=== PATIENT | male | born 1980 | race Hispanic/Latino ===

== ENCOUNTER 2022-04-07 09:58 | Inpatient (IN) | payer MEDICAID ==
[~2022-04-07] VITALS: Ht 170.2 cm; Wt 126.7 kg
[~2022-04-07 09:58] MED LIST: AMOX-426 PO; APIX5TAB PO; BUDE180H IH; FURO20TA6 PO; HYDR-4068 PO; IPRAHFA IH; METO-408 PO; PANT40TA55 PO; POTA10CA44 PO; PRED20B PO
[2022-04-07 10:28] LABS: CREATININE 0.4 mg/dL (0.5-1.5); POTASSIUM 4.1 mmol/L (3.5-5.1)
[2022-04-07 10:28] LABS: ABG HCO3 35.2 mmol/L (21.0-28.0); ABG OXYGEN SATURATION 92.6 % (95.0-99.0); ABG PCO2 89 mmHg (35-48)
[2022-04-07 10:31] LABS: BASOPHILS % (AUTO) 0.5 % (0.0-5.0); EOSINOPHILS % (AUTO) 0.7 % (0.0-8.0); HEMATOCRIT 57.3 % (42-54); LYMPHOCYTES % (AUTO) 23.3 % (21.0-51.0); MEAN CORPUSCULAR HEMOGLOBIN 20.3 pg (27.0-33.0); MEAN CORPUSCULAR HGB CONC 23.9 g/dL (32.0-36.0); NEUTROPHILS % (AUTO) 69.5 % (40.0-77.0); NUCLEATED RED BLOOD CELLS 2.2 % (0.0-0.19); PLATELET COUNT (AUTO) 132 K/uL (130-400); RED BLOOD CELL COUNT(AUTO) 6.74 MIL/uL (4.50-6.20); RED CELL DISTRIBUTION WIDTH 26.4 % (11.0-15.5); WHITE BLOOD COUNT (AUTO) 10.8 K/uL (4.8-10.8)
[2022-04-07 10:33] LABS: ALBUMIN 2.4 g/dL (3.5-5.0); BILIRUBIN,TOTAL 1.6 mg/dL (0.2-1.0); TOTAL PROTEIN, SERUM 6.6 g/dL (6.0-8.3)
[2022-04-07] MEDS ORDERED: FUROSEMIDE 20MG VIAL IV ONE (12:00)
[2022-04-07 12:29] LABS: APPEARANCE,URINE Cloudy (CLEAR); BILIRUBIN,URINE Large (NEGATIVE); COLOR,URINE Dark Yellow (YELLOW); GLUCOSE, URINE (UA) Negative (NEGATIVE); KETONES,URINE Trace mg/dL (NEGATIVE); LEUKOCYTE ESTERASE ,URINE Small (NEGATIVE); NITRATE,URINE Negative (NEGATIVE); OCCULT BLOOD,URINE Large (NEGATIVE); PROTEIN,URINE POS 2+ mg/dL (NEGATIVE)
[2022-04-07 12:33] LABS: AMPHET/METH SCREEN,URINE NEGATIVE (NEGATIVE); BARBITURATE SCREEN, URINE NEGATIVE (NEGATIVE); BENZODIAZEPINES SCREEN,URINE NEGATIVE (NEGATIVE); CANNABINOID SCREEN,URINE NEGATIVE (NEGATIVE); COCAINE SCREEN,URINE NEGATIVE (NEGATIVE); OPIATE SCREEN,URINE POSITIVE (NEGATIVE); PHENCYCLIDINE SCREEN,URINE NEGATIVE (NEGATIVE)
[2022-04-07 12:53] LABS: BACTERIA,URINE Moderate /HPF (None Seen); RBC,URINE >100 /HPF (0-1); WBC,URINE 26-50 /HPF (0-1)
[2022-04-07] MEDS ORDERED: ENOXAPARIN SODIUM 80 MG/0.8 ML SQ ONE (13:17)
[2022-04-07] MEDS: ENOXAPARIN SODIUM 0.5 MG/KG EACH SQ SCH (13:22)
[2022-04-07] MEDS: ZOSYN 3.375GM +NS 50ML IV SCH ×2 (14:36→21:49)
[2022-04-07] MEDS: DOXYCYCLINE 100MG+NS 250ML IV SCH (14:55)
[2022-04-07 17:19] LABS: ABG BASE EXCESS 16.3 mmol/L (-2.0-3.0); ABG HCO3 51.5 mmol/L (21.0-28.0); ABG PCO2 137 mmHg (35-48)
[2022-04-07 19:46] LABS: ABG BASE EXCESS 8.6 mmol/L (-2.0-3.0); ABG HCO3 39.1 mmol/L (21.0-28.0); ABG OXYGEN SATURATION 94.5 % (95.0-99.0); ABG PCO2 85 mmHg (35-48)
[2022-04-07] MEDS: FUROSEMIDE 40MG VIAL IV SCH (20:45)
[2022-04-07] MEDS ORDERED: PANTOPRAZOLE 40 MG/VIAL ONE (21:29)
[2022-04-07] MEDS ORDERED: PANTOPRAZOLE 40 MG/VIAL IVP ONE (21:30)
[2022-04-08] MEDS: DOXYCYCLINE 100MG+NS 250ML IV SCH ×2 (02:05→14:34)
[2022-04-08] MEDS ORDERED: ONDANSETRON 4MG INJ ONE (02:42)
[2022-04-08] MEDS ORDERED: ONDANSETRON 4MG INJ IVP PRN (03:00)
[2022-04-08] MEDS: ZOSYN 3.375GM +NS 50ML IV SCH ×3 (06:01→22:40)
[2022-04-08 07:10] LABS: ABG BASE EXCESS 13.6 mmol/L (-2.0-3.0); ABG OXYGEN SATURATION 77.8 % (95.0-99.0); ABG PCO2 77 mmHg (35-48)
[2022-04-08] MEDS: IPRATROPIUM/ALBUTEROL SULFATE 3 ML SOLUTION IH SCH ×3 (07:29→18:00)
[2022-04-08] MEDS: FUROSEMIDE 40MG VIAL IV SCH ×2 (08:00→20:31)
[2022-04-08] MEDS: PANTOPRAZOLE 40 MG/VIAL IVP SCH (08:00)
[2022-04-08 09:20] LABS: BASOPHILS % (AUTO) 0.4 % (0.0-5.0); EOSINOPHILS % (AUTO) 1.1 % (0.0-8.0); HEMATOCRIT 58.1 % (42-54); LYMPHOCYTES % (AUTO) 21.2 % (21.0-51.0); MEAN CORPUSCULAR HEMOGLOBIN 19.7 pg (27.0-33.0); MEAN CORPUSCULAR HGB CONC 23.8 g/dL (32.0-36.0); MONOCYTES % (AUTO) 7.7 % (3.0-13.0); NEUTROPHILS % (AUTO) 68.8 % (40.0-77.0); NUCLEATED RED BLOOD CELLS 1.4 % (0.0-0.19); PLATELET COUNT (AUTO) 137 K/uL (130-400); RED CELL DISTRIBUTION WIDTH 26.3 % (11.0-15.5); WHITE BLOOD COUNT (AUTO) 7.9 K/uL (4.8-10.8)
[2022-04-08 09:41] LABS: ALBUMIN 2.5 g/dL (3.5-5.0); BILIRUBIN,TOTAL 2.2 mg/dL (0.2-1.0); CREATININE 0.4 mg/dL (0.5-1.5); TOTAL PROTEIN, SERUM 6.6 g/dL (6.0-8.3)
[2022-04-08 09:47] LABS: POTASSIUM 2.8 mmol/L (3.5-5.1)
[2022-04-08] MEDS ORDERED: MAGNESIUM 2GM PREMIX 50ML 50 ML IV ONE (10:34)
[2022-04-08] MEDS ORDERED: POTASSIUM CHLORIDE 20MEQ/100ML 100 ML IV ONE (10:35)
[2022-04-08] MEDS ORDERED: LIDOCAINE HCL-MPF 1% 2ML VIAL ONE (10:35)
[2022-04-08] MEDS: MAGNESIUM 2GM PREMIX 50ML 50 ML IV PRN (10:43)
[2022-04-08] MEDS ORDERED: LIDOCAINE HCL-MPF 1% 2ML VIAL IV PRN (11:00)
[2022-04-08] MEDS ORDERED: POTASSIUM CHLORIDE 20MEQ/100ML 100 ML IV PRN (11:00)
[2022-04-08] MEDS: ENOXAPARIN SODIUM 0.5 MG/KG EACH SQ SCH (13:00)
[2022-04-08] MEDS ORDERED: ENOXAPARIN SODIUM 60 MG/0.6 ML SQ ONE (13:45)
[2022-04-08 15:11] LABS: ABG BASE EXCESS 7.5 mmol/L (-2.0-3.0); ABG HCO3 34.1 mmol/L (21.0-28.0); ABG OXYGEN SATURATION 96.3 % (95.0-99.0); ABG PCO2 55 mmHg (35-48)
[2022-04-08] MEDS: NEOMY SULF/BACITRA/POLYMYXIN B 3.5 GM OINT OU SCH ×2 (15:12→20:31)
[2022-04-08] MEDS ORDERED: PHARMACY COMMUNICATION MISC SCH (17:00)
[2022-04-08] MEDS ORDERED: COMPOUND IV REFRIGERATED 1 EACH IVSOLN MISC PRN (17:30)
[2022-04-08] MEDS ORDERED: VANCOMYCIN PROTOCOL PER PHARMACY IV SCH (17:30)
[2022-04-08] MEDS: VANCOMYCIN 1G 1.75 GM in 0.9% NACL 250ML 250 ML IV SCH (19:19)
[2022-04-08] MEDS: POTASSIUM CHLORIDE 10% ELIXIR 20 MEQ/15 ML UDCUP PO PRN (20:32)
[2022-04-08] MEDS ORDERED: 0.9% NACL 500ML IV.SOLN 500 ML IV SCH (22:30)
[2022-04-09] MEDS: IPRATROPIUM/ALBUTEROL SULFATE 3 ML SOLUTION IH SCH ×4 (00:08→16:46)
[2022-04-09] MEDS: DOXYCYCLINE 100MG+NS 250ML IV SCH ×2 (02:33→14:06)
[2022-04-09 05:08] LABS: ABG BASE EXCESS 16.3 mmol/L (-2.0-3.0); ABG HCO3 47.9 mmol/L (21.0-28.0); ABG OXYGEN SATURATION 94.5 % (95.0-99.0); ABG PCO2 98 mmHg (35-48)
[2022-04-09 05:48] LABS: HEMATOCRIT 54.3 % (42-54); MEAN CORPUSCULAR HEMOGLOBIN 20.1 pg (27.0-33.0); MEAN CORPUSCULAR HGB CONC 24.1 g/dL (32.0-36.0); MEAN CORPUSCULAR VOLUME 83.4 fL (79-99); NUCLEATED RED BLOOD CELLS 0.4 % (0.0-0.19); PLATELET COUNT (AUTO) 132 K/uL (130-400); RED BLOOD CELL COUNT(AUTO) 6.51 MIL/uL (4.50-6.20); RED CELL DISTRIBUTION WIDTH 26.1 % (11.0-15.5); WHITE BLOOD COUNT (AUTO) 9.5 K/uL (4.8-10.8)
[2022-04-09 06:04] LABS: ALBUMIN 2.1 g/dL (3.5-5.0); BILIRUBIN,TOTAL 1.5 mg/dL (0.2-1.0); CREATININE 0.4 mg/dL (0.5-1.5); MAGNESIUM 1.2 mg/dL (1.80-2.40); POTASSIUM 3.4 mmol/L (3.5-5.1); TOTAL PROTEIN, SERUM 5.9 g/dL (6.0-8.3)
[2022-04-09] MEDS: MAGNESIUM 2GM PREMIX 50ML 50 ML IV PRN (06:56)
[2022-04-09] MEDS: ZOSYN 3.375GM +NS 50ML IV SCH ×3 (06:56→23:01)
[2022-04-09] MEDS: PANTOPRAZOLE 40 MG/VIAL IVP SCH (08:51)
[2022-04-09] MEDS: FUROSEMIDE 40MG VIAL IV SCH ×2 (08:52→20:19)
[2022-04-09] MEDS: NEOMY SULF/BACITRA/POLYMYXIN B 3.5 GM OINT OU SCH ×3 (08:52→20:49)
[2022-04-09] MEDS: ASPIRIN 81MG CHEW TAB PO SCH (08:52)
[2022-04-09] MEDS: POTASSIUM CHLORIDE 10% ELIXIR 20 MEQ/15 ML UDCUP PO PRN ×2 (08:58→18:24)
[2022-04-09] MEDS ORDERED: NOREPINEPHRIN 4MG/NS 250ML 250 ML IV SCH (09:00)
[2022-04-09] MEDS: VANCOMYCIN 1G 1.75 GM in 0.9% NACL 250ML 250 ML IV SCH ×2 (09:06→20:21)
[2022-04-09] MEDS: MIDODRINE HCL 5 MG TABLET PO SCH ×3 (09:13→20:19)
[2022-04-09 10:48] VITALS: BP 101/51
[2022-04-09 13:35] VITALS: BP 104/53
[2022-04-09] MEDS ORDERED: 0.9% NACL 250ML 250 ML ONE (14:03)
[2022-04-09 15:11] LABS: ABG BASE EXCESS 11.1 mmol/L (-2.0-3.0); ABG HCO3 41.5 mmol/L (21.0-28.0); ABG OXYGEN SATURATION 89.2 % (95.0-99.0); ABG PCO2 85 mmHg (35-48)
[2022-04-09 15:20] VITALS: BP 113/58
[2022-04-09] MEDS: ENOXAPARIN SODIUM 60 MG/0.6 ML SQ SCH ×2 (15:50→20:20)
[2022-04-09 21:12] VITALS: BP 109/54
[2022-04-09 23:48] VITALS: BP 109/62
[2022-04-10] VITALS (7 sets, daily range): BP systolic 102–157; BP diastolic 51–76
[2022-04-10] MEDS: IPRATROPIUM/ALBUTEROL SULFATE 3 ML SOLUTION IH SCH ×5 (00:32→23:37)
[2022-04-10] MEDS: DOXYCYCLINE 100MG+NS 250ML IV SCH ×2 (02:27→14:09)
[2022-04-10 04:14] LABS: HEMATOCRIT 50.7 % (42-54); MEAN CORPUSCULAR HEMOGLOBIN 20.5 pg (27.0-33.0); MEAN CORPUSCULAR HGB CONC 24.9 g/dL (32.0-36.0); MEAN CORPUSCULAR VOLUME 82.3 fL (79-99); NUCLEATED RED BLOOD CELLS 0.2 % (0.0-0.19); PLATELET COUNT (AUTO) 101 K/uL (130-400); RED BLOOD CELL COUNT(AUTO) 6.16 MIL/uL (4.50-6.20); RED CELL DISTRIBUTION WIDTH 26.5 % (11.0-15.5); WHITE BLOOD COUNT (AUTO) 8.4 K/uL (4.8-10.8)
[2022-04-10 04:37] LABS: ALBUMIN 2.1 g/dL (3.5-5.0); BILIRUBIN,TOTAL 1.3 mg/dL (0.2-1.0); CREATININE 0.8 mg/dL (0.5-1.5); MAGNESIUM 1.4 mg/dL (1.80-2.40); POTASSIUM 3.4 mmol/L (3.5-5.1); TOTAL PROTEIN, SERUM 5.6 g/dL (6.0-8.3)
[2022-04-10] MEDS: ZOSYN 3.375GM +NS 50ML IV SCH ×3 (05:00→23:59)
[2022-04-10] MEDS: MAGNESIUM 2GM PREMIX 50ML 50 ML IV PRN (05:01)
[2022-04-10] MEDS: VANCOMYCIN 1G 1.75 GM in 0.9% NACL 250ML 250 ML IV SCH ×2 (08:30→20:23)
[2022-04-10] MEDS: PANTOPRAZOLE 40 MG/VIAL IVP SCH (09:44)
[2022-04-10] MEDS: ENOXAPARIN SODIUM 60 MG/0.6 ML SQ SCH ×2 (09:44→20:53)
[2022-04-10] MEDS: FUROSEMIDE 40MG VIAL IV SCH (09:44)
[2022-04-10] MEDS: ASPIRIN 81MG CHEW TAB PO SCH (09:45)
[2022-04-10] MEDS: MIDODRINE HCL 5 MG TABLET PO SCH ×3 (09:45→20:48)
[2022-04-10] MEDS: NEOMY SULF/BACITRA/POLYMYXIN B 3.5 GM OINT OU SCH ×3 (09:46→21:00)
[2022-04-10 09:57] LABS: ABG BASE EXCESS 9.6 mmol/L (-2.0-3.0); ABG HCO3 40.6 mmol/L (21.0-28.0); ABG PCO2 89 mmHg (35-48)
[2022-04-10] MEDS ORDERED: IOHEXOL 350 MG/ML 100ML INFUS..BTL IV ONE (10:43)
[2022-04-10] MEDS ORDERED: ACETAZOLAMIDE SODIUM 500 MG VIAL IV SCH ×2 (15:30→16:00)
[2022-04-10] MEDS: ACETAZOLAMIDE SODIUM 500 MG VIAL IV SCH (16:26)
[2022-04-10] MEDS: POTASSIUM CHLORIDE 10% ELIXIR 20 MEQ/15 ML UDCUP PO PRN ×2 (18:37→20:48)
[2022-04-10] MEDS ORDERED: FUROSEMIDE 20MG VIAL IV SCH (21:00)
[2022-04-11] VITALS (11 sets, daily range): BP systolic 110–174; BP diastolic 57–75
[2022-04-11] MEDS: DOXYCYCLINE 100MG+NS 250ML IV SCH ×2 (02:35→15:10)
[2022-04-11 04:40] LABS: ABG BASE EXCESS 11.7 mmol/L (-2.0-3.0); ABG HCO3 43.2 mmol/L (21.0-28.0); ABG OXYGEN SATURATION 95.6 % (95.0-99.0); ABG PCO2 94 mmHg (35-48)
[2022-04-11 05:20] LABS: HEMATOCRIT 50.9 % (42-54); MEAN CORPUSCULAR HEMOGLOBIN 20.7 pg (27.0-33.0); MEAN CORPUSCULAR HGB CONC 24.6 g/dL (32.0-36.0); MEAN CORPUSCULAR VOLUME 84.4 fL (79-99); PLATELET COUNT (AUTO) 98 K/uL (130-400); RED BLOOD CELL COUNT(AUTO) 6.03 MIL/uL (4.50-6.20); RED CELL DISTRIBUTION WIDTH 26.5 % (11.0-15.5); WHITE BLOOD COUNT (AUTO) 5.8 K/uL (4.8-10.8)
[2022-04-11 06:11] LABS: ALBUMIN 2.1 g/dL (3.5-5.0); BILIRUBIN,TOTAL 1.1 mg/dL (0.2-1.0); CREATININE 1.1 mg/dL (0.5-1.5); MAGNESIUM 1.9 mg/dL (1.80-2.40); POTASSIUM 3.5 mmol/L (3.5-5.1)
[2022-04-11] MEDS: ZOSYN 3.375GM +NS 50ML IV SCH ×3 (06:13→23:00)
[2022-04-11] MEDS: IPRATROPIUM/ALBUTEROL SULFATE 3 ML SOLUTION IH SCH ×4 (06:51→23:42)
[2022-04-11] MEDS: VANCOMYCIN 1G 1.75 GM in 0.9% NACL 250ML 250 ML IV SCH (09:00)
[2022-04-11] MEDS: POTASSIUM CHLORIDE 10% ELIXIR 20 MEQ/15 ML UDCUP PO PRN ×2 (10:12→15:10)
[2022-04-11] MEDS: ACETAZOLAMIDE SODIUM 500 MG VIAL IV SCH (10:12)
[2022-04-11] MEDS: PANTOPRAZOLE 40 MG/VIAL IVP SCH (10:13)
[2022-04-11] MEDS: MIDODRINE HCL 5 MG TABLET PO SCH ×3 (10:13→22:00)
[2022-04-11] MEDS: ASPIRIN 81MG CHEW TAB PO SCH (10:13)
[2022-04-11] MEDS: ENOXAPARIN SODIUM 60 MG/0.6 ML SQ SCH ×2 (10:13→22:00)
[2022-04-11] MEDS: NEOMY SULF/BACITRA/POLYMYXIN B 3.5 GM OINT OU SCH ×3 (10:13→21:00)
[2022-04-11 21:17] LABS: ABG BASE EXCESS 12.3 mmol/L (-2.0-3.0); ABG HCO3 40.4 mmol/L (21.0-28.0); ABG OXYGEN SATURATION 96.8 % (95.0-99.0); ABG PCO2 69 mmHg (35-48)
[2022-04-12] VITALS (33 sets, daily range): BP systolic 121–156; BP diastolic 49–115
[2022-04-12] MEDS: DOXYCYCLINE 100MG+NS 250ML IV SCH ×2 (03:00→14:04)
[2022-04-12] MEDS ORDERED: 0.9% NACL 250ML 250 ML ONE ×2 (03:09→13:15)
[2022-04-12 04:27] LABS: BASOPHILS % (AUTO) 0.5 % (0.0-5.0); EOSINOPHILS % (AUTO) 3.5 % (0.0-8.0); HEMATOCRIT 53.5 % (42-54); LYMPHOCYTES % (AUTO) 25.7 % (21.0-51.0); MEAN CORPUSCULAR VOLUME 84.4 fL (79-99); MONOCYTES % (AUTO) 9.5 % (3.0-13.0); NEUTROPHILS % (AUTO) 60.4 % (40.0-77.0); PLATELET COUNT (AUTO) 110 K/uL (130-400); RED BLOOD CELL COUNT(AUTO) 6.34 MIL/uL (4.50-6.20); RED CELL DISTRIBUTION WIDTH 27.1 % (11.0-15.5); WHITE BLOOD COUNT (AUTO) 5.5 K/uL (4.8-10.8)
[2022-04-12 04:52] LABS: ALBUMIN 2.2 g/dL (3.5-5.0); CREATININE 1.2 mg/dL (0.5-1.5); MAGNESIUM 1.8 mg/dL (1.80-2.40); PHOSPHORUS 3.2 mg/dL (2.5-4.9); POTASSIUM 3.2 mmol/L (3.5-5.1); TOTAL PROTEIN, SERUM 6.3 g/dL (6.0-8.3)
[2022-04-12 04:56] LABS: MEAN CORPUSCULAR HEMOGLOBIN 28.4 pg (27.0-33.0); MEAN CORPUSCULAR HGB CONC 33.6 g/dL (32.0-36.0)
[2022-04-12] MEDS: IPRATROPIUM/ALBUTEROL SULFATE 3 ML SOLUTION IH SCH ×4 (06:22→23:37)
[2022-04-12] MEDS: ZOSYN 3.375GM +NS 50ML IV SCH ×3 (06:30→21:10)
[2022-04-12] MEDS: MAGNESIUM 2GM PREMIX 50ML 50 ML IV PRN (08:32)
[2022-04-12] MEDS: ENOXAPARIN SODIUM 60 MG/0.6 ML SQ SCH ×2 (08:32→21:08)
[2022-04-12] MEDS: PANTOPRAZOLE 40 MG/VIAL IVP SCH (08:33)
[2022-04-12] MEDS: POTASSIUM CHLORIDE 10% ELIXIR 20 MEQ/15 ML UDCUP PO PRN (08:33)
[2022-04-12] MEDS: ASPIRIN 81MG CHEW TAB PO SCH (08:34)
[2022-04-12] MEDS: MIDODRINE HCL 5 MG TABLET PO SCH ×3 (08:56→21:08)
[2022-04-12] MEDS: KETOROLAC 30MG VIAL (30MG/ML) IM PRN ×3 (10:38→21:49)
[2022-04-12] MEDS: NEOMY SULF/BACITRA/POLYMYXIN B 3.5 GM OINT OU SCH ×3 (11:16→21:08)
[2022-04-12] MEDS: BALSAM PERU/CASTOR OIL 60 GM TUBE TP SCH (16:47)
[2022-04-12] MEDS ORDERED: NYSTATIN 15 GM POWDER TP ONE (16:51)
[2022-04-12] MEDS: NYSTATIN 15 GM POWDER TP SCH (21:08)
[2022-04-13] VITALS (18 sets, daily range): BP systolic 118–147; BP diastolic 52–75
[2022-04-13] MEDS: DOXYCYCLINE 100MG+NS 250ML IV SCH ×2 (01:08→13:28)
[2022-04-13 04:04] LABS: BASOPHILS % (AUTO) 0.5 % (0.0-5.0); EOSINOPHILS % (AUTO) 4.4 % (0.0-8.0); HEMATOCRIT 47.8 % (42-54); LYMPHOCYTES % (AUTO) 25.6 % (21.0-51.0); MEAN CORPUSCULAR HGB CONC 24.1 g/dL (32.0-36.0); MEAN CORPUSCULAR VOLUME 83.1 fL (79-99); MONOCYTES % (AUTO) 11.5 % (3.0-13.0); NEUTROPHILS % (AUTO) 57.6 % (40.0-77.0); PLATELET COUNT (AUTO) 105 K/uL (130-400); RED BLOOD CELL COUNT(AUTO) 5.75 MIL/uL (4.50-6.20); WHITE BLOOD COUNT (AUTO) 5.6 K/uL (4.8-10.8)
[2022-04-13 04:16] LABS: ABG BASE EXCESS 7.3 mmol/L (-2.0-3.0); ABG HCO3 35.6 mmol/L (21.0-28.0); ABG OXYGEN SATURATION 89.5 % (95.0-99.0); ABG PCO2 66 mmHg (35-48)
[2022-04-13 04:26] LABS: BILIRUBIN,TOTAL 0.8 mg/dL (0.2-1.0); CREATININE 1.3 mg/dL (0.5-1.5); MAGNESIUM 2.2 mg/dL (1.80-2.40); PHOSPHORUS 2.6 mg/dL (2.5-4.9); TOTAL PROTEIN, SERUM 5.6 g/dL (6.0-8.3)
[2022-04-13] MEDS: IPRATROPIUM/ALBUTEROL SULFATE 3 ML SOLUTION IH SCH ×4 (06:39→23:29)
[2022-04-13] MEDS: ZOSYN 3.375GM +NS 50ML IV SCH ×3 (06:46→21:33)
[2022-04-13] MEDS: POTASSIUM CHLORIDE 10% ELIXIR 20 MEQ/15 ML UDCUP PO PRN ×4 (06:51→15:30)
[2022-04-13] MEDS: PANTOPRAZOLE 40 MG/VIAL IVP SCH (08:23)
[2022-04-13] MEDS: ENOXAPARIN SODIUM 60 MG/0.6 ML SQ SCH ×2 (08:24→21:33)
[2022-04-13] MEDS: ASPIRIN 81MG CHEW TAB PO SCH (08:24)
[2022-04-13] MEDS: MIDODRINE HCL 5 MG TABLET PO SCH (08:30)
[2022-04-13] MEDS: BALSAM PERU/CASTOR OIL 60 GM TUBE TP SCH ×3 (08:30→21:33)
[2022-04-13] MEDS: NEOMY SULF/BACITRA/POLYMYXIN B 3.5 GM OINT OU SCH ×3 (08:30→21:33)
[2022-04-13] MEDS: NYSTATIN 15 GM POWDER TP SCH ×2 (08:30→21:33)
[2022-04-13] MEDS: KETOROLAC 30MG VIAL (30MG/ML) IM PRN ×2 (08:37→17:48)
[2022-04-13] MEDS ORDERED: POTASSIUM CHLORIDE 10% ELIXIR 20 MEQ/15 ML UDCUP PO SCH (11:43)
[2022-04-13] MEDS ORDERED: OXYC10TA48 PO (13:09)
[2022-04-13] MEDS ORDERED: AMLO-258 PO (13:09)
[2022-04-13] MEDS ORDERED: METO25TA6 PO (13:09)
[2022-04-13] MEDS ORDERED: FURO20TA4 PO (13:09)
[2022-04-13] MEDS ORDERED: HYDR28CR51 TP (13:09)
[2022-04-13] MEDS ORDERED: CYAN500L3 SL (13:09)
[2022-04-13] MEDS ORDERED: ESOM20CA31 PO (13:09)
[2022-04-13] MEDS ORDERED: FOLI0.8T3 PO (13:09)
[2022-04-13] MEDS ORDERED: TIZA-211 PO (13:09)
[2022-04-13] MEDS ORDERED: CETI10TA87 PO (13:09)
[2022-04-13] MEDS ORDERED: 0.9% NACL 250ML 250 ML ONE (13:13)
[2022-04-13 15:02] LABS: MAGNESIUM 2.2 mg/dL (1.80-2.40); POTASSIUM 3.5 mmol/L (3.5-5.1)
[2022-04-14] MEDS: KETOROLAC 30MG VIAL (30MG/ML) IM PRN ×2 (00:41→14:57)
[2022-04-14] MEDS: DOXYCYCLINE 100MG+NS 250ML IV SCH ×2 (00:41→14:57)
[2022-04-14 03:40] VITALS: BP 130/73
[2022-04-14 03:55] LABS: ABG BASE EXCESS 11.3 mmol/L (-2.0-3.0); ABG HCO3 40.6 mmol/L (21.0-28.0); ABG OXYGEN SATURATION 93.4 % (95.0-99.0); ABG PCO2 75 mmHg (35-48)
[2022-04-14] MEDS: ZOSYN 3.375GM +NS 50ML IV SCH ×3 (06:08→20:50)
[2022-04-14] MEDS: IPRATROPIUM/ALBUTEROL SULFATE 3 ML SOLUTION IH SCH ×4 (06:59→23:13)
[2022-04-14 08:00] VITALS: BP 131/77
[2022-04-14] MEDS: ENOXAPARIN SODIUM 60 MG/0.6 ML SQ SCH ×2 (08:02→20:51)
[2022-04-14] MEDS: ASPIRIN 81MG CHEW TAB PO SCH (08:03)
[2022-04-14] MEDS: PANTOPRAZOLE 40 MG/VIAL IVP SCH (08:04)
[2022-04-14] MEDS: NEOMY SULF/BACITRA/POLYMYXIN B 3.5 GM OINT OU SCH ×3 (08:06→20:51)
[2022-04-14] MEDS: BALSAM PERU/CASTOR OIL 60 GM TUBE TP SCH ×3 (08:06→20:51)
[2022-04-14] MEDS: NYSTATIN 15 GM POWDER TP SCH ×2 (08:06→20:52)
[2022-04-14] MEDS ORDERED: IOHEXOL-350 75 ML VIAL IV ONE (11:22)
[2022-04-14 12:00] VITALS: BP 136/78
[2022-04-14 14:03] LABS: BASOPHILS % (AUTO) 0.4 % (0.0-5.0); EOSINOPHILS % (AUTO) 3.8 % (0.0-8.0); HEMATOCRIT 47.8 % (42-54); LYMPHOCYTES % (AUTO) 13.1 % (21.0-51.0); MEAN CORPUSCULAR HEMOGLOBIN 20.7 pg (27.0-33.0); MEAN CORPUSCULAR HGB CONC 24.3 g/dL (32.0-36.0); MEAN CORPUSCULAR VOLUME 85.4 fL (79-99); MONOCYTES % (AUTO) 8.1 % (3.0-13.0); NEUTROPHILS % (AUTO) 74.4 % (40.0-77.0); PLATELET COUNT (AUTO) 126 K/uL (130-400); RED CELL DISTRIBUTION WIDTH 27.6 % (11.0-15.5); WHITE BLOOD COUNT (AUTO) 8.3 K/uL (4.8-10.8)
[2022-04-14 14:18] LABS: ALBUMIN 1.8 g/dL (3.5-5.0); BILIRUBIN,TOTAL 0.7 mg/dL (0.2-1.0); CREATININE 1.4 mg/dL (0.5-1.5); MAGNESIUM 1.8 mg/dL (1.80-2.40); PHOSPHORUS 2.6 mg/dL (2.5-4.9); POTASSIUM 3.2 mmol/L (3.5-5.1); TOTAL PROTEIN, SERUM 5.6 g/dL (6.0-8.3)
[2022-04-14 16:00] VITALS: BP 118/60
[2022-04-14 19:06] VITALS: BP 117/64
[2022-04-15 00:06] VITALS: BP 113/65
[2022-04-15] MEDS: DOXYCYCLINE 100MG+NS 250ML IV SCH (01:34)
[2022-04-15 04:00] VITALS: BP 117/64
[2022-04-15] MEDS: KETOROLAC 30MG VIAL (30MG/ML) IM PRN (04:25)
[2022-04-15 04:59] LABS: BASOPHILS % (AUTO) 0.4 % (0.0-5.0); EOSINOPHILS % (AUTO) 3.5 % (0.0-8.0); HEMATOCRIT 47.2 % (42-54); LYMPHOCYTES % (AUTO) 18.3 % (21.0-51.0); MEAN CORPUSCULAR HEMOGLOBIN 21.1 pg (27.0-33.0); MEAN CORPUSCULAR HGB CONC 25.2 g/dL (32.0-36.0); MEAN CORPUSCULAR VOLUME 83.7 fL (79-99); NEUTROPHILS % (AUTO) 68.5 % (40.0-77.0); PLATELET COUNT (AUTO) 101 K/uL (130-400); RED BLOOD CELL COUNT(AUTO) 5.64 MIL/uL (4.50-6.20); RED CELL DISTRIBUTION WIDTH 27.9 % (11.0-15.5); WHITE BLOOD COUNT (AUTO) 7.2 K/uL (4.8-10.8)
[2022-04-15] MEDS: ZOSYN 3.375GM +NS 50ML IV SCH (05:17)
[2022-04-15 05:21] LABS: ALBUMIN 1.7 g/dL (3.5-5.0); BILIRUBIN,TOTAL 0.8 mg/dL (0.2-1.0); CREATININE 1.3 mg/dL (0.5-1.5); POTASSIUM 3.3 mmol/L (3.5-5.1); TOTAL PROTEIN, SERUM 5.5 g/dL (6.0-8.3)
[2022-04-15] MEDS: POTASSIUM CHLORIDE 10% ELIXIR 20 MEQ/15 ML UDCUP PO PRN (05:52)
[2022-04-15] MEDS: IPRATROPIUM/ALBUTEROL SULFATE 3 ML SOLUTION IH SCH ×2 (06:48→11:06)
[2022-04-15 07:02] VITALS: BP 119/68
[2022-04-15 07:59] LABS: ABG BASE EXCESS 6.6 mmol/L (-2.0-3.0); ABG OXYGEN SATURATION 91.3 % (95.0-99.0); ABG PCO2 67 mmHg (35-48)
[2022-04-15] MEDS: PANTOPRAZOLE 40 MG/VIAL IVP SCH (08:09)
[2022-04-15] MEDS: ASPIRIN 81MG CHEW TAB PO SCH (08:09)
[2022-04-15] MEDS: NEOMY SULF/BACITRA/POLYMYXIN B 3.5 GM OINT OU SCH (08:10)
[2022-04-15] MEDS: ENOXAPARIN SODIUM 60 MG/0.6 ML SQ SCH (08:10)
[2022-04-15] MEDS: BALSAM PERU/CASTOR OIL 60 GM TUBE TP SCH (08:10)
[2022-04-15] MEDS: NYSTATIN 15 GM POWDER TP SCH (08:10)
[2022-04-15] MEDS ORDERED: TIZANIDINE HCL 2 MG TABLET PO SCH (14:00)
[2022-04-15] MEDS ORDERED: HYDROCORTISONE 2.5% CREAM 28G TP SCH (21:00)
[2022-04-15] MEDS ORDERED: METOPROLOL TARTRATE 25 MG TAB PO SCH (21:00)
[2022-04-16] MEDS ORDERED: AMLODIPINE 5 MG TAB PO SCH (09:00)
[2022-04-16] MEDS ORDERED: FOLIC ACID 1 MG TABLET PO SCH (09:00)
[2022-04-16] MEDS ORDERED: FUROSEMIDE 20 MG TABLET PO SCH (09:00)
[2022-04-16] MEDS ORDERED: CYANOCOBALAMIN (VITAMIN B-12) 1,000 MCG TABLET PO SCH (09:00)
[2022-04-16] MEDS ORDERED: CETIRIZINE HCL 5 MG TABLET PO SCH (09:00)
== END 2022-04-15 17:30 | disposition home or self-care (01) | DRG 720 ==
LOC: EDH 09:58 → EDHIP 09:59 → 2AH 04-09 13:30 → 2BH 04-11 16:49 → 2AH 04-13 16:57
PROVIDERS: ADMIT Internal Medicine; ATTEND Internal Medicine
PROC: 5A09357 Assistance with Respiratory Ventilation, Less than 24 Consecutive Hours, Continuous Positive Airway Pressure (ICD-10-PCS; principal; 2022-04-07)
PROC: 5A09357 Assistance with Respiratory Ventilation, Less than 24 Consecutive Hours, Continuous Positive Airway Pressure (ICD-10-PCS; 2022-04-08)
PROC: 5A09357 Assistance with Respiratory Ventilation, Less than 24 Consecutive Hours, Continuous Positive Airway Pressure (ICD-10-PCS; 2022-04-09)
PROC: 5A09357 Assistance with Respiratory Ventilation, Less than 24 Consecutive Hours, Continuous Positive Airway Pressure (ICD-10-PCS; 2022-04-10)
PROC: 5A09357 Assistance with Respiratory Ventilation, Less than 24 Consecutive Hours, Continuous Positive Airway Pressure (ICD-10-PCS; 2022-04-12)
PROC: 5A09357 Assistance with Respiratory Ventilation, Less than 24 Consecutive Hours, Continuous Positive Airway Pressure (ICD-10-PCS; 2022-04-13)
PROC: 5A09357 Assistance with Respiratory Ventilation, Less than 24 Consecutive Hours, Continuous Positive Airway Pressure (ICD-10-PCS; 2022-04-14)
PROC: 5A09357 Assistance with Respiratory Ventilation, Less than 24 Consecutive Hours, Continuous Positive Airway Pressure (ICD-10-PCS; 2022-04-15)
DX: A41.9 Sepsis, unspecified organism (principal); J96.21 Acute and chronic respiratory failure with hypoxia; J69.0 Pneumonitis due to inhalation of food and vomit; I21.A1 Myocardial infarction type 2; I50.33 Acute on chronic diastolic (congestive) heart failure; G93.41 Metabolic encephalopathy; N39.0 Urinary tract infection, site not specified; I11.0 Hypertensive heart disease with heart failure; S71.001A Unspecified open wound, right hip, initial encounter; J96.22 Acute and chronic respiratory failure with hypercapnia; Z98.2 Presence of cerebrospinal fluid drainage device; N19 Unspecified kidney failure; G89.4 Chronic pain syndrome; B96.89 Other specified bacterial agents as the cause of diseases classified elsewhere; D69.6 Thrombocytopenia, unspecified; E66.2 Morbid (severe) obesity with alveolar hypoventilation; G80.9 Cerebral palsy, unspecified; Z74.01 Bed confinement status; Z68.42 Body mass index [BMI] 45.0-49.9, adult; Z20.822 Contact with and (suspected) exposure to COVID-19; Z90.49 Acquired absence of other specified parts of digestive tract; Z79.899 Other long term (current) drug therapy; R53.81 Other malaise; R53.2 Functional quadriplegia; S21.101A Unspecified open wound of right front wall of thorax without penetration into thoracic cavity, initial encounter; X58.XXXA Exposure to other specified factors, initial encounter; Y93.89 Activity, other specified; Y92.89 Other specified places as the place of occurrence of the external cause; Y99.8 Other external cause status; J44.9 Chronic obstructive pulmonary disease, unspecified
CPT/HCPCS: 36415; 36600; 71045; 80053; 80202; 80305; 81001; 82435; 82803; 82947; 82948; 83605; 83735; 83880; 84100; 84132; 84145; 84295; 84443; 84484; 85018; 85025; 85027; 85378; 87040; 87077; 87088; 87186; 87635; 87804; 92610; 93005; 93306; 93970; 94640; 94660; 94664; 99291; C9113; C9803; G0378; J1120; J1650; J1885; J1940; J2405; J2543; J3370; J3475; J3480; J3490; J7050; Q9967

== ENCOUNTER 2023-03-15 14:30 | Emergency (ER) | payer MEDICAID ==
[~2023-03-15] VITALS: Ht 162.6 cm; Wt 95.3 kg
[~2023-03-15 14:30] MED LIST changes: -AMOX-426 PO; -APIX5TAB PO; -BUDE180H IH; +CHOL4POW4 PO; +CYAN500L3 SL; +FOLI0.8T3 PO; -FURO20TA6 PO; +GABA300C PO; -HYDR-4068 PO; +HYDR28CR51 TP; -IPRAHFA IH; +LACT1CAP79 PO; +LEVO-70 PO; -METO-408 PO; +METO25 PO; +METR-172 PO; -PANT40TA55 PO; -POTA10CA44 PO; -PRED20B PO; +SUCR1TAB PO
[2023-03-15 14:32] VITALS: BP 129/58
[2023-03-15] MEDS ORDERED: LIDOCAINE HCL 1% 20 ML VIAL SCH (15:00)
== END 2023-03-15 16:08 | disposition home or self-care (01) ==
LOC: EDH 14:30
DX: L60.0 Ingrowing nail (principal); M19.90 Unspecified osteoarthritis, unspecified site; Z79.899 Other long term (current) drug therapy; Z88.5 Allergy status to narcotic agent; Z93.0 Tracheostomy status; Z74.01 Bed confinement status
CPT/HCPCS: 11750